=== PATIENT | male | born 1950 | race Two or more races ===

== ENCOUNTER 2020-10-14 10:26 | Outpatient (CLI) | payer MEDICARE, BC ==
--- NOTE | 2020-10-14 17:44 | Consultation ---
DATE OF CONSULTATION: 10/14/2020 CHIEF COMPLAINT: Referral for endoscopy and colonoscopy. PAST MEDICAL HISTORY: 1. History of BPH. 2. Constipation. PAST SURGICAL HISTORY: Hemorrhoids, hernia repair. MEDICATIONS: Please see medication reconciliation list. FAMILY HISTORY: Brother of gastric cancer, metastasized. SOCIAL HISTORY: The patient quit alcohol and tobacco 10 years ago. ALLERGIES: No known drug allergies. REVIEW OF SYSTEMS: Positive for constipation and GERD. PHYSICAL EXAMINATION: VITAL SIGNS: Stable. HEENT: Normocephalic and atraumatic. Sclerae anicteric. NECK: Supple. No evidence of obvious lymphadenopathy. CARDIOVASCULAR: Regular rate and rhythm. Plus S1, S2. LUNGS: Clear to auscultation bilaterally. ABDOMEN: Positive bowel sounds. Soft and nontender. No rebound. No guarding. No peritoneal sign. EXTREMITIES: No cyanosis, no clubbing, no edema. ASSESSMENT AND PLAN: This is a 70-year-old male with need for screening colonoscopy, also has family history of gastric CA, needs endoscopy. Plan to do endoscopy and colonoscopy. The patient was given the instruction for both. We will schedule on December 22. Wei Coelho M.D. DR: Linda JOB#: [id number] CC:
== END 2020-10-14 11:15 | disposition home or self-care (01) ==
LOC: PAN 10:26
DX: K59.00 Constipation, unspecified (principal); K21.9 Gastro-esophageal reflux disease without esophagitis; Z80.0 Family history of malignant neoplasm of digestive organs
CPT/HCPCS: 99203